=== PATIENT | female | born 1990 | race Two or more races ===

== ENCOUNTER 2024-03-28 11:57 | Emergency (ER) | payer MEDICAID, SELFPAY ==
[2024-03-28 12:09] VITALS: BP 120/78; PULSE 71; RESP 17; TEMP 36.8; O2SAT 99; BMI 29.0
--- NOTE | 2024-03-28 12:17 | XR_ITS ---
Examination: PA lateral chest 2 views TECHNIQUE: Upright PA lateral chest 2 views Exam date and time: March 28, 2024 1228 hours INDICATIONS: Left-sided chest pain beginning 2 days ago. FINDINGS: Numerous bilateral subcentimeter pulmonary nodules which may represent granulomas No prior films for comparison No lobar pneumonia or pulmonary edema IMPRESSION: Numerous bilateral subcentimeter pulmonary nodules which may represent granulomatous Suggest 3 month follow-up PA lateral chest if no prior chest films are available for comparison
--- NOTE | 2024-03-28 12:38 | EDRME_ITS ---
Rapid Medical Screening Exam RME Arrival date/time: 03/28/24 11:57 34-year-old female presents to the emergency department today complains of left- sided rib pain Chief Complaint: General Adult/Misc Complain Time Seen by Provider: 03/28/24 12:05 Vital signs: Vital Signs Temperature 98.2 F 03/28/24 12:09 Pulse Rate 71 03/28/24 12:09 Respiratory Rate 17 03/28/24 12:09 Blood Pressure 120/78 03/28/24 12:09 Pulse Oximetry (%) 99 03/28/24 12:09 Oxygen Delivery Method Room Air 03/28/24 12:09
[2024-03-28 12:53] LABS: Collection Type, Urine Clean Catch
[2024-03-28 13:02] LABS: Basophils % (Auto) 0 % (0-2.5); Eosinophils # (Auto) 0.3 Thou/mm3 (0.0-0.5); Eosinophils % (Auto) 3 % (0-10); Hemoglobin 10.6 g/dL (12.0-16.0); Immature Granulocytes % (Auto) 0 % (0-0); Immature Granulocytes Auto 0.02 Thou/mm3 (0.00-0.00); Lymphocytes # (Auto) 2.3 Thou/mm3 (1.0-4.8); Lymphocytes % (Auto) 30 % (10-50); Mean Corpuscular HGB Conc 31.2 g/dl (31.0-37.0); Mean Corpuscular Hemoglobin 23.7 pg (25.0-35.0); Mean Corpuscular Volume 76 fL (80-100); Monocytes # (Auto) 0.5 Thou/mm3 (0.0-0.8); Monocytes % (Auto) 7 % (0-12); Neutrophils # (Auto) 4.5 Thou/mm3 (1.8-7.7); Neutrophils % (Auto) 60 % (37-80); Nucleated Red Blood Cell % 0 /100 WBC (0); Platelet Count 407 Thou/mm3 (140-440); RDW Standard Deviation 44.3 fL (36.4-46.3); Red Blood Count 4.47 Miln/mm3 (4.00-5.20); White Blood Count 7.6 Thou/mm3 (3.6-11.0)
[2024-03-28 13:12] LABS: Bilirubin,Urine Negative (Negative); Blood,Urine Negative (Negative); Clarity,Urine Clear (Clear/Hazy); Color,Urine Lt-Yellow (Lt Yel-Yel); Culture Indicated,Urine Not Indicated; Glucose, Urine Negative (Negative); Ketones,Urine Negative (Negative); Leukocyte Esterase,Urine Positive (Negative); Nitrite,Urine Negative (Negative); PH,Urine 6.5 (5.0-7.0); Protein,Urine Negative (Neg - Trace); RBC,Urine 10 /hpf (0-3); Specific Gravity,Urine 1.019 (1.001-1.035); Squamous Epithelial Cell,Urine 4 /hpf (0-5); Urobilinogen,Urine Negative mg/dL (0.0-1.0); WBC,Urine 2 /hpf (0-5)
[2024-03-28 13:22] LABS: Alanine Aminotransferase 13 U/L (10-49); Albumin, Serum 4.6 gm/dL (3.5-5.0); Albumin/Globulin Ratio 1.5 (1.2-2.2); Alkaline Phosphatase 97 U/L (46-116); Anion Gap 7 (7-16); Aspartate Amino Transferase 14 U/L (0-34); BUN/Creatinine Ratio 17 Ratio (12-20); Bilirubin,Total 0.6 mg/dL (0.3-1.2); Blood Urea Nitrogen 10 mg/dL (9-23); Calcium 9.1 mg/dL (8.3-10.6); Calcium (Corrected) 9.1 mg/dL (8.5-10.1); Carbon Dioxide 27.8 mMol/L (20.0-31.0); Chloride 105 mMol/L (98-107); Creatinine (Component) 0.6 mg/dL (0.6-1.3); Estimated Creatinine Clearance 93.8 mL/min (>60); Glucose 97 mg/dL (74-106); Lipase 36 U/L (12-53); Osmolality,Calculated 278 (275-295); Potassium 3.7 mMol/L (3.4-5.1); Sodium 140 mMol/L (136-145); Total Protein 7.6 gm/dL (5.7-8.2); Troponin I < 0.002 ng/mL (0.0-0.045); eGFR > 60 See Note
[2024-03-28 14:28] LABS: HCG Qualitative,Urine Negative
[2024-03-28 14:34] LABS: Cocci Serology, IgM Negative (Negative)
[2024-03-28 16:07] VITALS: BP 121/80; PULSE 68; RESP 16; TEMP 36.5; O2SAT 100
--- NOTE | 2024-03-28 16:46 | EDNOTE_ITS ---
ED General RME/HPI General Chief complaint: General Adult/Misc Complain Stated complaint: LEFT RIB PAIN x 2 DAYS Time Seen by Provider: 03/28/24 12:05 Arrival date/time: 03/28/24 11:57 CC: Left-sided chest pain reproducible palpation onset 2 to 3 days ago patient does work in the [employer] [place] for [employer], the patient denies any OTC medications. No other complaints including shortness of breath difficulty breathing or fever. RME / HPI RME / HPI narrative: 03/28/24 11:57 34-year-old female presents to the emergency department today complains of left- sided rib pain Related Data Previous Rx's ?Medication ?Instructions ?Recorded meloxicam 7.5 mg tablet 7.5 mg PO QDAY #10 tabs 03/28/24 Allergies Allergy/AdvReac Type Severity Reaction Status Date / Time No Known Allergies Allergy Verified 03/28/24 12:03 Review of Systems Review of Systems Narrative Review of Systems: GEN: No fever, no chills, no weight loss EYES: No discharge, no visual changes, no pain HEENT: No ear pain, no congestion, no sore throat PULM: No shortness of breath, no cough, no congestion CV: + chest pain, no dyspnea on exertion, no palpitations GI: No nausea, no vomiting, no diarrhea, no pain, no constipation : No frequency, no urgency, no dysuria MUSC/SKEL: No joint pain, no back pain SKIN: No rash PSYCH: No hallucinations, no depression HEME/LYMPH: No easy bleeding or bruising tendencies NEURO: No weakness, no headache Past Medical History Social History SMOKING STATUS: Never smoker ED Exam Narrative Physical exam: [General: Not in any acute distress Head normocephalic HEENT: Within acceptable limits Neck is supple nontender Chest equal chest rise site-specific tenderness to palpation left mid axillary line distal chest wall no prominent malformation rash induration ulceration or ecchymosis. Respiratory: Clear to auscultation no wheezes crackles or rubs CV: Rate rhythm is regular no murmurs rubs or clicks Abdomen soft nontender no masses positive bowel sounds all 4 quadrants Back: No CVA tenderness no spinous process tenderness from cervical spine thoracic and lumbar spine Skin: Intact no petechiae rash induration ulceration or crepitus Extremities: Moving all extremity against resistance cap refill less than 2 seconds neurosensory intact Neuro: Awake alert oriented x3 Glascow coma 15 no focal deficits] Course Quality Measures none Orders Category Date Time Status XR chest 2V Stat Exams 03/28/24 12:17 Completed CBC Stat Lab 03/28/24 12:46 Completed Cocci Serology IgM with reflex to IgG [Cocci Serology, Lab 03/28/24 12:54 Results Unk History] Stat Comprehensive Metabolic Panel Stat Lab 03/28/24 12:46 Completed HCG Qualitative,Urine Stat Lab 03/28/24 12:30 Completed Lipase Stat Lab 03/28/24 12:46 Completed Troponin I Stat Lab 03/28/24 12:46 Completed UA, C/S IF [Urinalysis, C/S if Indicated] Stat Lab 03/28/24 12:30 Completed Ibuprofen Tab [Motrin Tab] Med 03/28/24 16:45 Discontinued 400 mg PO X1 ONE Vital Signs Vital signs: Vital Signs Temperature 98.2 F 03/28/24 12:09 Pulse Rate 71 03/28/24 12:09 Respiratory Rate 17 03/28/24 12:09 Blood Pressure 120/78 03/28/24 12:09 Pulse Oximetry (%) 99 03/28/24 12:09 Oxygen Delivery Method Room Air 03/28/24 12:09 [facility] Patient data External records reviewed:: [facility] previous records Clinical information provided by:: patient Social determinants that could affect healthcare access:: none Patient has the following chronic illnesses:: None How is presenting disease/condition affected by chronic disease/condition?: u neffected by Evaluation data The following diagnostics were reviewed and interpreted by me:: lab results and radiology exam(s) Lab and/or radiology exams considered but not ordered:: CBC shows no leukocytosis, there is anemia, no thrombocytopenia CMP shows no electrolyte imbalances renal impairment transaminitis T. bili elevation Urine is negative for any urinary tract infection Lipase is 36 Chest x-ray is negative for any acute finding requires emergent or immediate intervention. Interpretation Summary: Intercostal or chest wall strain Medications Medications considered but not ordered:: None Medication administrations:: Medication Administration History Discontinued Medications Ibuprofen (Ibuprofen Tab 400 Mg Tablet) 400 mg PO X1 ONE Stop: 03/28/24 16:46 None Consultations Consultation(s) initiated? (list below): No Diagnosis Differential Diagnosis ED Complaint MDM: Intercostal strain, pleuritic pain pneumothorax Most likely diagnosis given after review of the tests above:: Muscle strain chest wall Admission Indicated Admission indicated?: not indicated Explain why admission is indicated or not indicated:: Stable for discharge Admission Request Was there a request for admission?: No Disposition Plan Disposition Plan: Discharge Discharge Attestation Discharge Attestation: The patient and all family members were given an opportunity to ask questions and understood the discharge instructions. Discharge instructions specifically effects, indications for sooner follow up or return to the emergency department, and the expected course of current diagnosis. Patient condition: Stable Medical Decision Making Differential Diagnosis Differential Diagnosis: Intercostal strain, pleuritic pain pneumothorax Lab Data 03/28/24 12:46 03/28/24 12:46 Labs: Lab Results 03/28/24 03/28/24 03/28/24 Range/Units 12:30 12:46 12:54 WBC 7.6 (3.6-11.0) Thou/mm3 RBC 4.47 (4.00-5.20) Miln/mm3 Hgb 10.6 L (12.0-16.0) g/dL Hct 34.0 L (36.0-46.0) % MCV 76 L (80-100) fL MCH 23.7 L (25.0-35.0) pg MCHC 31.2 (31.0-37.0) g/dl RDW Std Deviation 44.3 (36.4-46.3) fL Plt Count 407 (140-440) Thou/mm3 Neut % (Auto) 60 (37-80) % Lymph % (Auto) 30 (10-50) % [place] % (Auto) 7 (0-12) % Eos % (Auto) 3 (0-10) % Baso % (Auto) 0 (0-2.5) % Neut # (Auto) 4.5 (1.8-7.7) Thou/mm3 Lymph # (Auto) 2.3 (1.0-4.8) Thou/mm3 [place] # (Auto) 0.5 (0.0-0.8) Thou/mm3 Eos # (Auto) 0.3 (0.0-0.5) Thou/mm3 Baso # (Auto) 0.0 (0.0-0.2) Thou/mm3 Immature Gran # (Auto) 0.02 H (0.00-0.00) Thou/mm3 Absolute Nucleated RBC 0.00 (0.00-0.00) Thou/mm3 Immature Gran % 0 (0-0) % Nucleated RBC % 0 (0) /100 WBC Sodium 140 (136-145) mMol/L Potassium 3.7 (3.4-5.1) mMol/L Chloride 105 (98-107) mMol/L Carbon Dioxide 27.8 (20.0-31.0) mMol/L Anion Gap 7 (7-16) BUN 10 (9-23) mg/dL Creatinine 0.6 (0.6-1.3) mg/dL Estim Creat Clear Calc 93.8 (>60) mL/min eGFR > 60 (60 - ) See Note BUN/Creatinine Ratio 17 (12-20) Ratio Glucose 97 (74-106) mg/dL Calculated Osmolality 278 (275-295) Calcium 9.1 (8.3-10.6) mg/dL Corrected Calcium 9.1 (8.5-10.1) mg/dL Total Bilirubin 0.6 (0.3-1.2) mg/dL AST 14 (0-34) U/L ALT 13 (10-49) U/L Alkaline Phosphatase 97 (46-116) U/L Troponin I < 0.002 (0.0-0.045) ng/mL Total Protein 7.6 (5.7-8.2) gm/dL Albumin 4.6 (3.5-5.0) gm/dL Globulin 3.0 (2.3-3.5) gm/dL Albumin/Globulin Ratio 1.5 (1.2-2.2) Lipase 36 (12-53) U/L Ur Collection Type Clean Catch Urine Color Lt-Yellow (Lt Yel-Yel) Urine Clarity Clear (Clear/Hazy) Urine pH 6.5 (5.0-7.0) Ur Specific [place] 1.019 (1.001-1.035) Urine Protein Negative (Neg - Trace) Urine Glucose (UA) Negative (Negative) Urine Ketones Negative (Negative) Urine Blood Negative (Negative) Urine Nitrite Negative (Negative) Urine Bilirubin Negative (Negative) Urine Urobilinogen (Auto) Negative (0.0-1.0) mg/dL Ur Leukocyte Esterase Positive (Negative) Urine RBC 10 H (0-3) /hpf Urine WBC 2 (0-5) /hpf Ur Squamous Epith Cells 4 (0-5) /hpf Urine Bacteria None (None) Ur Culture Indicated? Not Indicated Urine HCG, Qual Negative Coccidioides IgM Ab Negative (Negative) Discharge Plan Plan Patient Disposition: HOME (Self Care) Patient condition on transfer: Stable Prescriptions/Referrals Prescriptions/Med Rec: New meloxicam 7.5 mg tablet 7.5 mg PO QDAY Qty: 10 0RF Referrals: Domenico Kaur MD [Physician] - In 1 week No Primary/Family,Physician [Primary Care Provider] - In 1 week Problem List Clinical Impression: Strain of chest wall Patient/Caregiver Discharge Instructions Education Materials: Self-Care for Strains and Sprains Print Language: Albanian Stand Alone Forms: Gabi Award Info., Patient Portal Info Letter, Work/School Release PA/SLOTTER OPERATOR Supervising Physician PA/SLOTTER OPERATOR Supervising Physician: Tucker Rollins ENP
[2024-03-28] MEDS: IBUPROFEN TAB 400 MG TABLET PO (17:13)
[2024-03-29 14:01] LABS: Cocci Serology, IgG Negative (Negative)
== END 2024-03-28 17:16 | disposition home or self-care (01) ==
PROVIDERS: Nurse Practitioner Primary Care; Emergency Provider Emergency Medicine
DX: S29.011A Strain of muscle and tendon of front wall of thorax, initial encounter (principal); X58.XXXA Exposure to other specified factors, initial encounter
CPT/HCPCS: 36415; 71046; 80053; 81001; 81025; 83690; 84484; 85025; 86331; 86635; 99283; A9270